=== PATIENT | female | born 1980 | race Hispanic/Latino ===

== ENCOUNTER 2018-04-08 20:20 | Emergency (ER) | payer OTHER ==
[2018-04-08 21:30] LABS: Urine Blood TRACE (NEG); Urine Glucose NEGATIVE (NEG); Urine Protein NEGATIVE (NEG); Urine Specific Gravity 1.025 (1.005-1.030); Urine pH 6.5 (5.0-7.0)
[2018-04-08 21:43] LABS: Barbiturates NEGATIVE (NEGATIVE); Benzodiazepines NEGATIVE (NEGATIVE); Cocaine NEGATIVE (NEGATIVE); METHAMPHETAM NEGATIVE (NEGATIVE); Methadone NEGATIVE (NEGATIVE); Opiates NEGATIVE (NEGATIVE); Phencyclidine NEGATIVE (NEGATIVE); THC Cannibis NEGATIVE (NEGATIVE)
[2018-04-08 21:54] LABS: Absolute Lymphocytes (CBC) 2.4 K/uL (0.7-4.9); Absolute Monocytes 0.8 K/uL (0.1-1.3); Absolute Neutrophil 7.9 K/uL (1.8-8.0); Basophils % 0.4 % (0-1.3); Eosinophils % 4.8 % (0-4.4); Hematocrit 39.8 % (36.0-45.0); Lymphocytes % 20.5 % (15.3-44.8); MPV 8.2 fL (7.6-11.3); Monocytes % 6.7 % (3.3-12.3)
[2018-04-08 22:01] LABS: Protime INR 0.95
[2018-04-08 22:11] LABS: ALT/SGPT 33 U/L (12-78); AST/SGOT 14 U/L (15-37); Albumin 3.5 g/dL (3.4-5.0); Alkaline Phosphatase 90 U/L (45-117); BUN Blood Urea Nitrogen 9 mg/dL (7-18); Bicarbonate 29 mmol/L (21-32); Bilirubin Direct < 0.1 mg/dL (0-0.2); Bilirubin Total 0.1 mg/dL (0.2-1.0); Glucose Level 93 mg/dL (74-106); Potassium 3.3 mmol/L (3.5-5.1); Protein, Total 7.4 g/dL (6.4-8.2); Sodium Level 141 mmol/L (136-145)
[2018-04-08] MEDS ORDERED: POTASSIUM CL SA 10 MEQ TAB PO ONE (22:33)
--- NOTE | 2018-04-08 23:34 | EDPHYS ---
Physician Documentation [facility] Name: Natacha Levine Age: 37 yrs Sex: Female : 1980 Arrival Date: 04/08/2018 Time: 20:24 Bed 8 Private MD: Skyler [facility] ED Physician Alexandre Alvarenga HPI: 04/08 22:08 This 37 yrs old Female presents to ER via Ambulatory with complaints of jr8 Altered Mental Status. 22:08 The patient presents to the emergency department with paranoia, psychosis, has jr8 experienced auditory hallucinations, has experienced visual hallucinations, has delusions. Onset: The symptoms/episode began/occurred gradually, 3 month(s) ago, and became worse and became persistent. Past psychiatric history: Prior diagnosis: schizophrenia, Psychiatric medications include: none. Associated signs and symptoms: The patient has no apparent associated signs or symptoms. Severity of symptoms: At their worst the symptoms were moderate in the emergency department the symptoms are unchanged. The patient has experienced similar episodes in the past, a few times. The patient has not recently seen a physician. Family stated that patient has history of schizophrenia. Has been off of her meds for some time. Has been seeing and hearing people over the past few months that is getting much worse. Patient having flight of ideas and racing thoughts while talking to her. Patient delusional and talking about needing the [employer] and people fondling her and pinching her nipples. 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 - Social history:: Smoking status: Patient/guardian denies using tobacco. - Ebola Screening: : No symptoms or risks identified at this time. ROS: 22:08 Eyes: Negative for injury, pain, redness, and discharge, ENT: Negative for injury, jr8 pain, and discharge, Neck: Negative for injury, pain, and swelling, Cardiovascular: Negative for chest pain, palpitations, and edema, Respiratory: Negative for shortness of breath, cough, wheezing, and pleuritic chest pain, Abdomen/GI: Negative for abdominal pain, nausea, vomiting, diarrhea, and constipation, Back: Negative for injury and pain, MS/Extremity: Negative for injury and deformity, Skin: Negative for injury, rash, and discoloration, Neuro: Negative for headache, weakness, numbness, tingling, and seizure. 22:08 Psych: Positive for auditory hallucinations, visual hallucinations. Exam: 22:08 Head/Face: Normocephalic, atraumatic. Eyes: Pupils equal round and reactive to light, jr8 extra-ocular motions intact. Lids and lashes normal. Conjunctiva and sclera are non-icteric and not injected. Cornea within normal limits. Periorbital areas with no swelling, redness, or edema. ENT: Nares patent. No nasal discharge, no septal abnormalities noted. Tympanic membranes are normal and external auditory canals are clear. Oropharynx with no redness, swelling, or masses, exudates, or evidence of obstruction, uvula midline. Mucous membranes moist. Neck: Trachea midline, no thyromegaly or masses palpated, and no cervical lymphadenopathy. Supple, full range of motion without nuchal rigidity, or vertebral point tenderness. No Meningismus. Cardiovascular: Regular rate and rhythm with a normal S1 and S2. No gallops, murmurs, or rubs. Normal PMI, no JVD. No pulse deficits. Respiratory: Lungs have equal breath sounds bilaterally, clear to auscultation and percussion. No rales, rhonchi or wheezes noted. No increased work of breathing, no retractions or nasal flaring. Abdomen/GI: Soft, non-tender, with normal bowel sounds. No distension or tympany. No guarding or rebound. No evidence of tenderness throughout. Back: No spinal tenderness. No costovertebral tenderness. Full range of motion. Skin: Warm, dry with normal turgor. Normal color with no rashes, no lesions, and no evidence of cellulitis. MS/ Extremity: Pulses equal, no cyanosis. Neurovascular intact. Full, normal range of motion. Neuro: Awake and alert, GCS 15, oriented to person, place, time, and situation. Cranial nerves II-XII grossly intact. Motor strength 5/5 in all extremities. Sensory grossly intact. Cerebellar exam normal. Normal gait. 22:08 Psych: Behavior/mood is cooperative, delirious, Affect is animated, Oriented to person, place, time, Patient has no thoughts/intents to harm self or others. Judgement / Insight is normal. Memory is normal. Delusions/hallucinations are present and described as see hpi . Vital Signs: 20:30 BP 138 / 78; Pulse 90; Resp 18; Temp 98.9(O); Pulse Ox 100% on R/A; Weight 81.65 kg; lp1 Height 5 ft. 4 in. (162.56 cm); Pain 0/10; 23:00 BP 108 / 62; Pulse 84; Resp 16; Pulse Ox 100% on R/A; lp1 20:30 Body Mass Index 30.90 (81.65 kg, 162.56 cm) lp1 MDM: 20:26 Patient medically screened. jr8 23:31 Data reviewed: vital signs, nurses notes, lab test result(s). Data interpreted: Pulse jr8 oximetry: on room air is 100 %. Interpretation: normal. Counseling: I had a detailed discussion with the patient and/or guardian regarding: the historical points, exam findings, and any diagnostic results supporting the discharge/admit diagnosis, lab results, the need to transfer to another facility, [facility] does not immediately have the required specialist. ED course: Dr. Palencia consulted an [facility] and accepted patient for further evaluation . 04/08 21:05 Order name: Basic Metabolic Panel; Complete Time: 22:13 [facility] 04/08 21:05 Order name: CBC with Diff; Complete Time: 22:04 [facility] 04/08 21:05 Order name: ETOH Level; Complete Time: 22:16 [facility] 04/08 21:05 Order name: Hepatic Function; Complete Time: 22:13 [facility] 04/08 21:05 Order name: PT-INR; Complete Time: 22:08 [facility] 04/08 21:05 Order name: Ptt, Activated; Complete Time: 22:08 [facility] 04/08 21:05 Order name: Urine Drug Screen; Complete Time: 21:44 [facility] 04/08 21:05 Order name: IV Saline Lock; Complete Time: 21:53 [facility] 04/08 21:05 Order name: Labs collected and sent; Complete Time: 21:53 [facility] 04/08 21:05 Order name: Urine Dipstick-Ancillary (obtain specimen); Complete Time: 21:18 jr8 04/08 21:05 Order name: Urine Test (obtain specimen); Complete Time: 21:18 jr8 04/08 21:25 Order name: Urine Dipstick--Ancillary (enter results); Complete Time: 21:44 em1 04/08 21:25 Order name: Urine --Ancillary (enter results); Complete Time: 21:44 em1 Administered Medications: 22:25 Drug: Potassium Chloride 20 mEq Route: PO; tl2 23:54 Follow up: Response: No adverse reaction lp1 Disposition: 04/09 15:52 Co-signature as Attending Physician, Alexandre Alvarenga MD I agree with the assessment and [facility] plan of care. Disposition: 04/08/18 23:33 Transfer ordered to Psych Facility. Diagnosis is Schizophrenia. - Reason for transfer: Higher level of care. - Accepting physician is Dr. Palencia. - Condition is Stable. - Problem is new. - Symptoms are unchanged. Signatures: Dispatcher [employer] EDAlexandre Whitman MD MD cha Pena, Laura, RN RN lp1 Alec Esqueda PA PA jr8 Shelia Alba RN RN tl2 Corrections: (The following items were deleted from the chart) 00:14 04/08 23:33 04/08/2018 23:33 Transfer ordered to Psych Facility. Diagnosis is lp1 Schizophrenia. Reason for transfer: Higher level of care. Accepting physician is Dr. Palencia. Condition is Stable. Problem is new. Symptoms are unchanged. jr8
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
[2018-04-09 00:56] VITALS: TEMP 98.9; O2SAT 100
[2018-04-09 00:57] VITALS: BP 108/62
--- OUTSIDE RECORDS SUMMARY | 2018-04-09 17:43 | XMS REPORT ---
:1980 Author Organization eClinicalWorks Care Team Providers Name Role Phone Skyler Jalen Provider Role Unavailable Allergies No Known Allergies Problems Problem Type Condition Code Onset Dates Condition Status Problem Hyperlipidemia, mixed E78.2 Active Problem Hyperglycemia R73.9 Active Problem Depression F32.9 Active Assessment Adult BMI 33.0-33.9 kg/sq m Z68.33 Active Assessment Inflamed skin tag L91.8 Active Problem Vitamin D deficiency E55.9 Active Problem Nocturia R35.1 Active Problem Adult BMI 33.0-33.9 kg/sq m Z68.33 Active Problem Allergic rhinitis J30.9 Active Problem Hypothyroidism E03.9 Active Problem Status post hysterectomy Z90.710 Active Problem Fatigue, unspecified type R53.83 Active Medications Medication Code Code Instructions Start End Status Dosage System Date Date Vitamin D3 [facility] 52159871140 5000 UNIT Active 1 tablet Orally Once a day Levothyroxine ND 26424765847 50 MCG Active TAKE ONE Sodium TABLET BY MOUTH DAILY Flonase Allergy ND 59963154275 50 MCG/ACT Active 1 spray in Relief Nasally Once a each day nostril Results No Known Results Summary Purpose eClinicalWorks Submission
--- OUTSIDE RECORDS SUMMARY | 2018-04-09 17:43 | XMS REPORT ---
:1980 Author Organization eClinicalWorks Care Team Providers Name Role Phone HollandRadhah Provider Role Unavailable Allergies No Known Allergies Problems Problem Type Condition Code Onset Dates Condition Status Problem Depression F32.9 Active Problem Hyperlipidemia, mixed E78.2 Active Problem Nocturia R35.1 Active Problem Status post hysterectomy Z90.710 Active Problem Vitamin D deficiency E55.9 Active Problem Hypothyroidism E03.9 Active Problem Hyperglycemia R73.9 Active Problem Fatigue, unspecified type R53.83 Active Problem Allergic rhinitis J30.9 Active Medications No Known Medications Results No Known Results Summary Purpose eClinicalWorks Submission
--- OUTSIDE RECORDS SUMMARY | 2018-04-09 17:43 | XMS REPORT ---
:1980 Author Organization e[employer]Works Care Team Providers Name Role Phone Skyler Jalen Provider Role Unavailable Allergies No Known Allergies Problems Problem Type Condition Code Onset Dates Condition Status Problem Hyperlipidemia, mixed E78.2 Active Problem Hyperglycemia R73.9 Active Problem Depression F32.9 Active Problem Vitamin D deficiency E55.9 Active Problem Nocturia R35.1 Active Problem Adult BMI 33.0-33.9 kg/sq m Z68.33 Active Problem Allergic rhinitis J30.9 Active Problem Hypothyroidism E03.9 Active Problem Status post hysterectomy Z90.710 Active Problem Fatigue, unspecified type R53.83 Active Medications Medication Code Code Instructions Start End Status Dosage System Date Date Levothyroxine [facility] 43185813239 50 MCG oral Active 1 tablet Sodium once daily on an empty stomach Results No Known Results Summary Purpose eClinicalWorks Submission
--- OUTSIDE RECORDS SUMMARY | 2018-04-09 17:43 | XMS REPORT ---
:1980 Author Organization eClinicalWorks Care Team Providers Name Role Phone Radha Hollandh Provider Role Unavailable Allergies No Known Allergies [...]
--- OUTSIDE RECORDS SUMMARY | 2018-04-09 17:43 | XMS REPORT ---
:1980 Author Organization eClinicalWorks Care Team Providers Name Role Phone Jalen Holland Provider Role Unavailable Allergies, Adverse Reactions, Alerts Substance Reaction Event Type Amoxicillin Info Not Available Drug Allergy Problems Problem Type Condition Code Onset Dates Condition Status Problem Hyperlipidemia, mixed E78.2 Active Problem Hyperglycemia R73.9 Active Problem Depression F32.9 Active Problem Vitamin D deficiency E55.9 Active Problem Nocturia R35.1 Active Problem Adult BMI 33.0-33.9 kg/sq m Z68.33 Active Problem Allergic rhinitis J30.9 Active Problem Hypothyroidism E03.9 Active Problem Status post hysterectomy Z90.710 Active Problem Fatigue, unspecified type R53.83 Active Assessment Fatigue, unspecified type R53.83 Active Assessment Vitamin D deficiency E55.9 Active Assessment Hyperlipidemia, mixed E78.2 Active Assessment Allergic rhinitis J30.9 Active Assessment Hypothyroidism E03.9 Active Assessment Depression F32.9 Active Medications Medication Code Code Instructions Start End Status Dosage System Date Date Levothyroxine [facility] 20598559399 50 MCG Orally Active 1 tablet Sodium Once a day on an empty stomach in the morning Flonase Allergy ND 20338786348 50 MCG/ACT Active 1 spray in Relief Nasally Once a each day nostril Levothyroxine ND 72693593825 50 MCG oral Active 1 tablet Sodium once daily on an empty stomach Vitamin D3 ND 83086732138 5000 UNIT Active 1 tablet Orally Once a day Results No Known Results Summary Purpose eClinicalWorks Submission
--- OUTSIDE RECORDS SUMMARY | 2018-04-09 17:43 | XMS REPORT ---
:1980 Author Organization eClinicalWorks Care Team Providers Name Role Phone Aidee Granda Provider Role Unavailable Allergies No Known Allergies [...] Problem Fatigue, unspecified type R53.83 Active Medications No Known Medications Results No Known Results Summary Purpose eClinicalWorks Submission
--- OUTSIDE RECORDS SUMMARY | 2018-04-09 17:43 | XMS REPORT ---
:1980 Author Organization eClinicalWorks Care Team Providers Name Role Phone Jalen Holland Provider Role Unavailable Allergies No Known Allergies Problems Problem Type Condition Code Onset Dates Condition Status Assessment Hypothyroidism E03.9 Active Problem Depression F32.9 Active Problem Hyperlipidemia, mixed E78.2 Active Problem Nocturia R35.1 Active Problem Status post hysterectomy Z90.710 Active Problem Vitamin D deficiency E55.9 Active Problem Hypothyroidism E03.9 Active Problem Hyperglycemia R73.9 Active Problem Fatigue, unspecified type R53.83 Active Problem Allergic rhinitis J30.9 Active Assessment Allergic rhinitis J30.9 Active Assessment Depression F32.9 Active Assessment Vitamin D deficiency E55.9 Active Assessment Fatigue, unspecified type R53.83 Active Assessment Hyperlipidemia, mixed E78.2 Active Medications Medication Code Code Instructions Start End Status Dosage System Date Date Vitamin D3 [facility] 36493616783 5000 UNIT September 17September 12, Active 1 tablet Orally Once a 2017 2018 day Flonase Allergy ND 58265574765 50 MCG/ACT Active 1 spray in Relief Nasally Once a each day nostril Levothyroxine ND 43791627338 50 MCG Orally Active 1 tablet Sodium Once a day on an empty stomach in the morning Results No Known Results Summary Purpose eClinicalWorks Submission
--- OUTSIDE RECORDS SUMMARY | 2018-04-09 17:43 | XMS REPORT ---
[...] Active Problem Allergic rhinitis J30.9 Active Assessment Fatigue, unspecified type R53.83 Active Assessment Vitamin D deficiency E55.9 Active Assessment Hyperlipidemia, mixed E78.2 Active Assessment Allergic rhinitis J30.9 Active Assessment Hypothyroidism E03.9 Active Assessment Depression F32.9 Active Assessment Mass of right axilla R22.31 Active Medications Medication Code Code Instructions Start End Status Dosage System Date Date Levothyroxine ND 13338775049 50 MCG Orally Active 1 tablet Sodium Once a day on an empty stomach in the morning Flonase Allergy ND 55460663671 50 MCG/ACT Active 1 spray in Relief Nasally Once a each day nostril Levothyroxine ND 37047147446 50 MCG Active TAKE ONE Sodium TABLET BY MOUTH DAILY Vitamin D3 ND 16457574845 5000 UNIT Active 1 tablet Orally Once a day Results No Known Results Summary Purpose eClinicalWorks Submission
== END 2018-04-09 00:14 ==
LOC: ER 20:20
DX: F20.9 Schizophrenia, unspecified (principal); E03.9 Hypothyroidism, unspecified; Z88.1 Allergy status to other antibiotic agents
CPT/HCPCS: 36415; 80048; 80076; 80307; 80320; 81003; 81025; 85025; 85610; 85730; 99285

== ENCOUNTER 2020-05-20 11:44 | Emergency (ER) | payer OTHER, SELFPAY ==
--- OUTSIDE RECORDS SUMMARY | 2020-05-20 11:46 | XMS REPORT | Continuity of Care Document ---
:1980 Author Organization [facility] t Address [address] [place] [address] Care Team Providers Name Role Phone Unavailable Unavailable Unavailable Problems This patient has no known problems. Allergies, Adverse Reactions, Alerts Allergy Allergy Status Severity Reaction(s) Onset Inactive Treating Comm ents Source Name Type Date Date Clinician Amoxicil Adverse Active Info Not [facility] Available [facility] Medications Ordered Filled Start Stop Current Ordering Indication Dosage Frequency Signature Comments Components Source Medication Medication Date Date Medication? Clinician (SIG) Name Name Levothyroxi Levothyroxi Yes Jalen [address] [facility] ne Sodium ne Sodium Holland on an Mona es - empty Memoria stomach in l the [facility] morning ent Clinics Vitamin D3 Vitamin D3 Yes Jalen [address] [facility] [place] [facility] Fluticasone Fluticasone Yes Jalen SPRAY TWO [facility] Propionate Propionate [place] SPRAYS IN [facility] NOSTRIL l ONCE DAILY [facility]ics Flonase Flonase Yes Jalen [address] [facility] Allergy Allergy [place] each [facility] Relief Relief nostril [facility] Clin[facility] Procedures This patient has no known procedures. Encounters Start End Encounter Admission Attending Care Care Encounter Source Date/Time Date/Time Type Type Clinicians Facility Department ID 2020-03-07 2020-03-07 Outpatient [facility] [id number] [facility] 2020-03-06 2020-03-06 Outpatient [facility] [id number] [facility] Outpat[facility] ent Clinics 2019-12-05 2019-12-05 [facility] [id number] [facility] 14:53:00 14:53:00 t [employer] [facility] Medicine Outpati ent Clinics 2019-12-02 2019-12-02 [facility] [id number] [facility] 10:45:00 10:45:00 t [employer] [facility] Out[facility] Clinics 2019-09-05 2019-09-05 [facility] [id number] [facility] [address] 16:45:00 16:45:00 t [employer] [facility] 2019-09-02 2019-09-02 [facility] [id number] [address] 10:21:00 10:21:00 t [employer] [facility] Clinics 2019-07-06 2019-07-06 [facility] [id number] [facility] 16:56:00 16:56:00 t [employer] [facility] 2019-07-04 2019-07-04 [facility] [id number] 13:45:00 13:45:00 t [employer] [facility] Clinics 2019-07-04 2019-07-04 [facility] [id number] [address] 10:39:00 10:39:00 t [employer] [facility] Out[facility] Clinics 2019-05-31 2019-05-31 [facility] [id number] 16:28:00 16:28:00 t [employer] [facility] Out[facility] ent Clinics 2019-05-05 2019-05-05 [facility] [id number] [facility] 10:14:00 10:14:00 t [employer] [facility] Out[facility] ent Clinics 2019-03-31 2019-03-31 [facility] [id number] [address] 10:54:00 10:54:00 [place] [employer] s - [facility] 2018-12-06 2018-12-06 [facility] [id number] [facility] [address] 09:45:00 09:45:00 [place] [employer] s - [facility] 2018-12-03 2018-12-03 [facility] [id number] [address] 16:33:00 16:33:00 [place] [employer] s - [facility] 2018-11-03 2018-11-03 [facility] [id number] [address] 08:36:00 08:36:00 [place] [employer] s - [facility] 2018-08-16 2018-08-16 [facility] [id number] [address] 15:30:00 15:30:00 [facility] 2018-05-26 2018-05-26 [facility] [id number] [address] 13[facility]00:00 13:00:00 [place] [employer] [facility] Clin[facility] 2018-01-26 2018-01-26 [facility] [id number] [address] 13:15:00 13:15:00 [place] [employer] s - [facility] 2018-01-13 2018-01-13 [facility] [id number] [address] 13:15:00 13:15:00 t [facility] Outpat[facility] ent Clinics 2017-12-15 2017-12-15 [facility] [id number] [address] 09:34:00 09:34:00 [place] [employer] s - [facility] 2017-11-23 2017-11-23 [facility] [id number] [facility] 13:30:00 13:30:00 t [employer] [facility] Clin[facility] 2017-10-29 2017-10-29 [facility] [id number] [address] 13:45:00 13:45:00 t [employer] [facility] 2017-09-29 2017-09-29 [facility] [id number] 11:15:00 11:15:00 t [employer] [facility] 2017-09-22 2017-09-22 [facility] [id number] 11:11:00 11:11:00 t [employer] [facility] Outpati ent Clinics 2017-09-17 2017-09-17 [facility] [id number] 13:00:00 13:00:00 t [employer] [facility] Outpati ent Clinics Results This patient has no known results.
--- OUTSIDE RECORDS SUMMARY | 2020-05-20 11:46 | XMS REPORT ---
:1980 Author Organization [facility] Address [address] [place] [address] Care Team Providers Name Role Phone Holland Unavailable [phone] PROBLEMS Type Condition ICD9-CM [id number] Onset Condition SNOMED Code Notes Code Code Dates Status Problem Depression F32.9 Active 108858488 Problem Hyperlipidemia, E78.2 Active 067111007 mixed Problem Hypothyroidism E03.9 Active 38994428 Problem Fatigue, R53.83 Active 54744471 unspecified type Problem Status post Z90.710 Active 678450911 hysterectomy Problem Pain, joint, M25.541 Active 5693962284331172 hand, right Problem Allergic J30.9 Active 47406664 rhinitis Problem Paresthesia of R20.2 Active 61161184761485495 right arm Problem Hyperglycemia R73.9 Active 73587190 Problem Nocturia R35.1 Active 982611632 Problem Vitamin D E55.9 Active 15729065 deficiency Problem Adult BMI Z68.33 Active 311916151 33.0-33.9 kg/sq m Problem Carpal tunnel G56.01 Active 58458110 syndrome of right wrist ALLERGIES Allergen (clinical drug Drug/Non Drug Allergy Reaction Allergy Type Onset Date Status ingredient) documented on EMR amoxicillin Amoxicillin([facility] Unknown Drug Allergy Active Code:[address]-96) ENCOUNTERS from 1980 to 2020-03-08 Encounter Location Date Provider Diagnosis [facility] [place] [address] [place], Jalen Holland Hypothyro idism E03.9 ; Drive [address], Hyperlipid [place], [place] [address] E78.2 ; Vitami n D deficiency E55. 9 ; Depression F32. 9 ; Allergic rhinit is J30.9 ; Fatigue, unsp ecified type R53.83 and Nocturia R35.1 IMMUNIZATIONS No Information SOCIAL HISTORY Tobacco Use: Social History Observation Description Date Details (start date - stop date) Never Smoker Sex Assigned At : Social History Observation Description Sex Assigned At Unknown Depression Screening Question Answer Notes Over the past two weeks, has the PT felt down, depressed, or hopeless? No Over the past two weeks, has the PT felt little interest or pleasure in No doing things? Alcohol Screen Question Answer Notes Did you have a drink containing alcohol in the past year? No Points 0 Interpretation Negative Tobacco Use/Smoking Question Answer Notes Are you a never smoker REASON FOR REFERRAL No Information VITAL SIGNS Height 62 in Feb, Weight 185 lbs Feb, Temperature 98 degrees Fahrenheit Feb, BMI 33.83 kg/m2 Feb, MEDICATIONS Medication SIG (Take, Route, Notes Start Date End Date Status Frequency, Duration) Vitamin D3 5000 UNIT 1 tablet Orally Once a Active day for 30 day(s) Fluticasone Propionate 50 SPRAY TWO SPRAYS IN EACH Active MCG/ACT NOSTRIL ONCE DAILY for 30 Flonase Allergy Relief 50 1 spray in each nostril Active MCG/ACT Nasally Once a day Levothyroxine Sodium 50 MCG 1 tablet on an empty Active stomach in the morning Orally Once a day for 90 days Flonase Allergy Relief 50 1 spray in each nostril Active MCG/ACT Nasally Once a day for 30 PROCEDURES No Information RESULTS No Results REASON FOR VISIT 3 mth f/u MEDICAL (GENERAL) HISTORY Type Description Date Medical History Hypothyroidism Medical History Hyperlipidemia, mixed Medical History Depression Medical History Hyperglycemia Medical History Allergic rhinitis Medical History Vitamin D deficiency Medical History Fatigue, unspecified type Medical History Adult BMI 33.0-33.9 kg/sq m Surgical History Hysterectomy due to Fibroids. Dr.Kadiyal hutchins 2011 Surgical History GALLBLADDER 2013 Goals Section No Information Health Concerns No Information MEDICAL EQUIPMENT No Information MENTAL STATUS No Information FUNCTIONAL STATUS No Information ASSESSMENTS Encounter Date Diagnosis Assessment Notes Treatment Notes Treatm ent Clinical Notes Feb, Hypothyroidism Education given. (ICD-10 - E03.9) Refill given. Continue Current regimen. Side effect discussed. , Hypothyroidism Education: This a condition in which the thyroid gland does not produce enough thyroid hormone for the body. The hormones are important in regulating the body''s use of storing and controlling energy. Symptoms are widely varied and often mimick the body''s normal changes of life. Symptoms may include: fatigue, shortness of breath with exertion, dry skin, hair loss, constipation, depressed feeling, weight gain and temperature intolerance. A blood test is used to determine the thyroid levels. Treatment involves the use of medication in order to balance the TSH and T4 hormone levels. Treatment is indefinite and often lifelong. Your hormone levels will need to be checked periodically to insure that the levels are balanced. Compliance with medication is vital. Overtreated hormone levels can lead to complications. Contact your doctor if you have any abnormal symptoms. Feb, Hyperlipidemia, Diet-Controlled. mixed (ICD-10 - Education given. E78.2) Feb, Vitamin D deficiency Make Dietary changes (ICD-10 - E55.9) and inceased sunlight. Intermittent compliant. Feb, Depression (ICD-10 - Seen by counselor. F32.9) NO medications.-- Depression Education: Depression is a brain disease that makes you sad, but it is different than normal sadness. Depressed people feel down most of the time for at least 2 weeks. They also have at least one of these 2 symptoms: 1. They no longer enjoy or care about doing the things they used to like to do. 2. They feel sad, down, hopeless, or cranky most of the day, almost every day. It can also make you: lose or gain weight; sleep too much or too little; fell tired or like you have no energy; feel guilty or like you are worth nothing; forget things or feel confused; and think about or suicide. Medication and/or seeing a counselor (such as a psychiatrist, psychologist, nurse or high school social studies tutor) may be necessary to treat depression. Both treatments take time to work. If you ever feel like you might hurt yourself or some else, then call your doctor or call 911 or go to the ER. Feb, Allergic rhinitis Stable. Education (ICD-10 - J30.9) given. Feb, Fatigue, unspecified Education given. type (ICD-10 - R53.83) Feb, Nocturia (ICD-10 - R35.1) Feb, Other -- Medication reviewed and updated. -- Dietary and Lifestyle modifications addressed regarding diet, exercise and weight managemen t. -- Treatment options, risks and benefits, side effects reviewed in detail. -- Advised on signs/symptoms to monitor and when to call clinic and/or visit the nearest ER. Patient verbalized understanding and agreeable with plan. PLAN OF TREATMENT Medication Medication Name Sig Start Date Stop Date Vitamin D3 5000 UNIT 1 tablet Orally Once a day for 30 day(s) Levothyroxine Sodium 50 MCG 1 tablet on an empty stomach in the morning Orally Once a day for 90 days Flonase Allergy Relief 50 MCG/ACT 1 spray in each nostril Nasally Once a day Treatment Notes Assessment Notes Clinical Notes Hypothyroidism Education given. Refill given. Continue Current regimen. Side effect discussed. , Hypothyroidism Education: This a conditi on in which the thyroid gland does not prod uce enough thyroid hormone for the body. The hormones are important in regulating the body''s use of storing and controlling energy. Symptoms are widely varied and o ften mimick the body''s normal changes of lif e. Symptoms may include: fatigue, shortness of breath with exertion, dry skin, hair los s, constipation, depressed feeling, weight gain and temperature intolerance. A blood raz t is used to determine the thyroid levels. Treatment involves the use of medication in order to balance the TSH and T4 hormone levels. Treatment is indefinite and ofte n lifelong. Your hormone levels will need to be checked periodically to insure that t he levels are balanced. Compliance with medication is vital. Overtreated hormone levels can lead to complications. Contac t your doctor if you have any abnormal symptoms. Hyperlipidemia, mixed Diet-Controlled. Education given. Vitamin D deficiency Make Dietary changes and inceased sunli ght. Intermittent compliant. Depression Seen by counselor. NO medications.-- Depression Education: Depression is a br ain disease that makes you sad, but it is different than normal sadness. Depressed people feel down most of the time for at least 2 weeks. They also have at least o ne of these 2 symptoms: 1. They no longer e njoy or care about doing the things they used to like to do. 2. They feel sad, down, hopeless, or cranky most of the day, brandon ost every day. It can also make you: lose or gain weight; sleep too much or too littl e; fell tired or like you have no energy; f eel guilty or like you are worth nothing; fo rget things or feel confused; and think about or suicide. Medication and/or seei ng a counselor (such as a psychiatrist, psychologist, nurse or high school social studies tutor) ma y be necessary to treat depression. Both treatments take time to work. If you sergio r feel like you might hurt yourself or eliza e else, then call your doctor or call 911 or go to the ER. Allergic rhinitis Stable. Education given. Fatigue, unspecified type Education given. Treatment Notes Test Name Order Date Thyroid Panel With TSH 2020-03-08 Vitamin D, 25-Hydroxy 2020-03-08 Next Appt Details 3 Months + Labs 1 week Reason:
--- OUTSIDE RECORDS SUMMARY | 2020-05-20 11:46 | XMS REPORT ---
:1980 Author Organization [facility] Address [address] [place] [address] Care Team Providers Name Role Phone Holland Unavailable [phone] PROBLEMS Type Condition ICD9-CM [id number] Onset Condition SNOMED Code Notes Code Code Dates Status Problem Depression F32.9 Active 760684566 Problem Hyperlipidemia, E78.2 Active 790084439 mixed Problem Hypothyroidism E03.9 Active 70042827 Problem Fatigue, R53.83 Active 94379649 unspecified type Problem Status post Z90.710 Active 378988610 hysterectomy Problem Pain, joint, M25.541 Active 0069140943435128 hand, right Problem Allergic J30.9 Active 12418541 rhinitis Problem Paresthesia of R20.2 Active 36109150316293802 right arm Problem Hyperglycemia R73.9 Active 45243562 Problem Nocturia R35.1 Active 425429495 Problem Vitamin D E55.9 Active 65251781 deficiency Problem Adult BMI Z68.33 Active 570105035 33.0-33.9 kg/sq m Problem Carpal tunnel G56.01 Active 93674606 syndrome of right wrist ALLERGIES Allergen (clinical drug Drug/Non Drug Allergy Reaction Allergy Type Onset Date Status ingredient) documented on EMR amoxicillin Amoxicillin([facility] Unknown Drug Allergy Active Code:[address]-69) ENCOUNTERS from 1980 to 2020-03-06 Encounter Location Date Provider Diagnosis [facility] [address], [place] [address] IMMUNIZATIONS No Information SOCIAL HISTORY Tobacco Use: [...] REASON FOR REFERRAL No Information VITAL SIGNS No information MEDICATIONS Medication SIG (Take, Route, Notes Start Date End Date Status Frequency, Duration) Levothyroxine Sodium 50 MCG 1 tablet on an empty Active stomach in the morning Orally Once a day for 90 days Vitamin D3 5000 UNIT 1 tablet Orally Once a Active day for 30 day(s) Fluticasone Propionate 50 SPRAY TWO SPRAYS IN EACH Active MCG/ACT NOSTRIL ONCE DAILY for 30 Flonase Allergy Relief 50 1 spray in each nostril Active MCG/ACT Nasally Once a day for 30 PROCEDURES No Information RESULTS No Results REASON FOR VISIT refill levothyroxine MEDICAL (GENERAL) HISTORY Type Description Date Medical History Hypothyroidism Medical History Hyperlipidemia, mixed Medical History Depression Medical History Hyperglycemia Medical History Allergic rhinitis Medical History Vitamin D deficiency Medical History Fatigue, unspecified type Medical History Adult BMI 33.0-33.9 kg/sq m Surgical History Hysterectomy due to Fibroids. Dr.Kadiyal hutchins 2012 Surgical History GALLBLADDER 2013 Goals Section No Information Health Concerns No Information MEDICAL EQUIPMENT No Information MENTAL STATUS No Information FUNCTIONAL STATUS No Information ASSESSMENTS No Information PLAN OF TREATMENT Medication Medication Name Sig Start Date Stop Date Vitamin D3 5000 UNIT 1 tablet Orally Once a day for 30 day(s) Levothyroxine Sodium 50 MCG 1 tablet on an empty stomach in the morning Orally Once a day for 90 days Flonase Allergy Relief 50 MCG/ACT 1 spray in each nostril Nasally Once a day for 30 Next Appt Details Provider Name:Jalen Holland, 2020-03-07 0 4:00:00 PM, [address], [place], [address],
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
--- NOTE | 2020-05-20 13:42 | EDPHYS ---
Physician Documentation [facility] Name: Natacha Levine Age: 39 yrs Sex: Female : 1980 Arrival Date: 05/20/2020 Time: 11:47 Bed 25 Private MD: ED Physician Dangelo García HPI: 05/20 13:31 This 39 yrs old Female presents to ER via Ambulatory with complaints of Mental [facility] Evaluation. 13:31 This is a 39 year old female with a history of HLP, hypothyroidism, schizophrenia that jmm presents to the ED with no complaints for mental evaluation. Patient denies being suicidal or homicidal. Denies hallucinations. . Historical: - Allergies: 12:38 Amoxicillin; ss - PMHx: 12:38 Hyperlipidemia; Hypothyroidism; Schizophrenia; ss - PSHx: 12:38 Hysterectomy; Cholecystectomy; ss - Immunization history:: Flu vaccine is not up to date. - Social history:: Smoking status: Patient denies any tobacco usage or history of. ROS: 13:31 Constitutional: Negative for fever, chills, and weight loss, Cardiovascular: Negative jmm for chest pain, palpitations, and edema, Respiratory: Negative for shortness of breath, cough, wheezing, and pleuritic chest pain, Abdomen/GI: Negative for abdominal pain, nausea, vomiting, diarrhea, and constipation, Neuro: Negative for headache, weakness, numbness, tingling, and seizure. 13:31 All other systems are negative. Exam: 13:31 Constitutional: This is a well developed, well nourished patient who is awake, alert, jmm and in no acute distress. Head/Face: atraumatic. Eyes: EOMI, no conjunctival erythema appreciated ENT: Moist Mucus Membranes Neck: Trachea midline, Supple Chest/axilla: Normal chest wall appearance and motion. Cardiovascular: Regular rate and rhythm. No edema appreciated Respiratory: Normal respirations, no respiratory distress appreciated Abdomen/GI: Non distended, soft Back: Normal ROM Skin: General appearance color normal MS/ Extremity: Moves all extremities, no obvious deformities appreciated, no edema noted to the lower extremities 13:31 Neuro: Orientation: is normal, Mentation: is normal, Memory: is normal. 13:31 Psych: Behavior/mood is pleasant, tangential speech regarding a neighbor. Vital Signs: 12:39 BP 134 / 89; Pulse 89; Resp 16; Temp 98.1; Pulse Ox 100% on R/A; Weight 58.97 kg; ss Height 5 ft. 7 in. (170.18 cm); Pain 0/10; 12:39 Body Mass Index 20.36 (58.97 kg, 170.18 cm) ss MDM: 13:29 Patient medically screened. pinky 13:31 Data reviewed: vital signs, nurses notes. Counseling: I had a detailed discussion with pinky the patient and/or guardian regarding: the historical points, exam findings, and any diagnostic results supporting the discharge/admit diagnosis, the need for outpatient follow up, to return to the emergency department if symptoms worsen or persist or if there are any questions or concerns that arise at home. ED course: Patient is not suicidal or homicidal. Patient does not want mental health evaluation. Patient advised to return to the ED if she does develop those thoughts. . 05/20 13:29 Order name: Milton. Order: alburnett; Complete Time: 13:32 pinky Administered Medications: No medications were administered Disposition: 05/20/20 13:41 Discharged to Home. Impression: Person with feared health complaint in whom no diagnosis is made. - Condition is Stable. - Medication Reconciliation Form, Thank You Letter, Antibiotic Education, Prescription Opioid Use form. - Follow up: Private Physician; When: 2 - 3 days; Reason: Recheck today's complaints, Continuance of care, Re-evaluation by your physician. Addendum: 05/21/2020 18:28 Co-signature as Attending Physician, Dangelo García MD. m a2 Signatures: Abhay Frost PA PA jmm Smirch, Shelby, RN RN Dangelo García MD MD ma2 Corrections: (The following items were deleted from the chart) 05/20 13:53 13:41 05/20/2020 13:41 Discharged to Home. Impression: Person with feared health ss complaint in whom no diagnosis is made. Condition is Stable. Forms are Medication Reconciliation Form, Thank You Letter, Antibiotic Education, Prescription Opioid Use. Follow up: Private Physician; When: 2 - 3 days; Reason: Recheck today's complaints, Continuance of care, Re-evaluation by your physician. pinky
[2020-05-20 14:02] VITALS: BP 134/89; TEMP 98.1; O2SAT 100
== END 2020-05-20 13:53 | disposition home or self-care (01) ==
LOC: ER 11:44
DX: Z71.1 Person with feared health complaint in whom no diagnosis is made (principal); Z88.1 Allergy status to other antibiotic agents; E03.9 Hypothyroidism, unspecified; F20.9 Schizophrenia, unspecified
CPT/HCPCS: 99281

== ENCOUNTER 2021-06-06 17:46 | Emergency (ER) | payer SELFPAY ==
--- OUTSIDE RECORDS SUMMARY | 2021-06-06 17:51 | XMS REPORT | Continuity of Care Document ---
:1980 Author Organization [facility] t Address [address] [place] [address] Care Team Providers Name Role Phone Skyler, Jalen Attending Clinician Unavailable Problems This patient has no known problems. Allergies, Adverse Reactions, Alerts Allergy Allergy Status Severity Reaction(s) Onset Inactive Treating Comm ents Source Name Type Date Date Clinician Amoxicil Adverse Active Info Not [facility] Medications Ordered Filled Start Stop Current Ordering Indication Dosage Frequency Signature Comments Components Source Medication Medication Date Date Medication? Clinician (SIG) Name Name Levothyroxi Levothyroxi Yes Jalen [address] [facility] ne Sodium ne Sodium Holland on an Mona es - empty [facility] Vitamin D3 Vitamin D3 Yes Jalen [address] [facility] Fluticasone Fluticasone Yes Jalen SPRAY TWO [facility] Propionate Propionate [facility] SPRAYS IN [facility] Flonase Flonase Yes Jalen [address] [facility] Allergy Allergy [facility] each [facility] Relief Relief nostril [facility] ent Clinics Procedures This patient has no known procedures. Encounters Start End Encounter Admission Attending Care Care Encounter Source Date/Time Date/Time Type Type Clinicians Facility Department ID 2021-05-15 [facility] [id number] [facility] 12:06:37 Jalen [id number] [facility] 2021-05-15 Outpatient Holland, [facility] [id number] [facility] [address] 12:06:03 Jalen [id number] [facility] 2021-05-15 [facility] [id number] [facility] 11:21:23 Jalen [id number] [facility] 2021-05-15 [facility] [id number] [facility] [address] 11:06:51 Jalen [id number] [facility] 2021-05-15 [facility] [id number] [facility] [facility] 11:06:24 Jalen [id number] [facility] 2021-05-15 [facility] [id number] 11:06:12 Jalen [id number] [facility] 2021-05-15 [facility] [id number] [address] 11:04:19 Jalen [id number] [facility] 2021-02-12 2021-02-12 Outpatient [facility] [id number] [facility] 2020-11-06 2020-11-06 Out[facility] [id number] [facility] 2020-10-03 2020-10-03 Out[facility] [id number] [facility] 2020-06-07 2020-06-07 Outpatient [facility] [id number] [facility] 2020-03-07 2020-03-07 Out[facility] [id number] [facility] 2020-03-06 2020-03-06 Out[facility] [id number] [facility]00 [facility] Outpat[facility] ent Clinics 2019-12-05 2019-12-05 [facility] [id number] [facility] 14:53[facility]00 14:53:00 [place] [employer] [facility] l Medicine Outpati ent Clinics 2019-12-02 2019-12-02 [facility] [id number] [facility] 10:45:00 10:45:00 [place] [employer] [facility] Clin[facility] 2019-09-05 2019-09-05 [facility] [id number] 16:45:00 16:45:00 [place] [facility] - [facility] Clinics 2019-09-02 2019-09-02 [facility] [id number] 10:21:00 10:21:00 [place] [facility] [place] [facility] Out[facility] Clinics 2019-07-06 2019-07-06 [facility] [id number] [facility] 16:56:00 16:56:00 [place] [facility] [place] [facility] Out[facility] Clinics 2019-07-04 2019-07-04 [facility] [id number] 13:45:00 13:45:00 [place] [facility] [place] [facility] Clinics 2019-07-04 2019-07-04 [facility] [id number] [facility] 10:39:00 10:39:00 [place] [facility] [facility] Out[facility] Clinics 2019-05-31 2019-05-31 [facility] [id number] 16:28:00 16:28:00 [place] [facility] [facility] Clinics 2019-05-05 2019-05-05 [facility] [id number] 10:14:00 10:14:00 [place] [employer] [facility] Clinics 2019-03-31 2019-03-31 [facility] [id number] [facility] 10:54:00 10:54:[address] [place] [address] [place] [address] [facility] - [facility] Clinics 2018-12-06 2018-12-06 [facility] [id number] [address] 09:45:00 09:45:[address] [place] [address] [facility] - [facility] Clinics 2018-12-03 2018-12-03 [facility] [id number] 16:33:00 16:33:00 [place] [employer] [facility] Clinics 2018-11-03 2018-11-03 [facility] [id number] 08:36:00 08:36:00 [place] [employer] [facility] Clin[facility] 2018-08-16 2018-08-16 [facility] [id number] 15:30:00 15:30:00 [facility] Clinics 2018-05-26 2018-05-26 [facility] [id number] 13:00:00 13:00:00 [place] [facility] [place] [facility] Outpati ent Clinics 2018-01-26 2018-01-26 [facility] [id number] 13:15:00 13:15:00 [place] [facility] [facility] - [facility] Outpati ent Clinics 2018-01-13 2018-01-13 [facility] [id number] [facility] 13:15:00 13:15:00 [facility] 2017-12-15 2017-12-15 [facility] [id number] 09:34:00 09:34:00 [place] [employer] [facility] Clin[facility] 2017-11-23 2017-11-23 [facility] [id number] 13:30:00 13:30:00 [place] [employer] - [facility] 2017-10-29 2017-10-29 [facility] [id number] 13:45:00 13:45:[address] [place] [address] [employer] [facility] - [facility] Clin[facility] 2017-09-29 2017-09-29 [facility] [id number] 11:15:00 11:15:[address] [place] [address] [address] [employer] [facility] - Drive [facility] Clin[facility] 2017-09-22 2017-09-22 [facility] [id number] 11:11:00 11:11:00 [place] [facility] [facility] Clin[facility] 2017-09-17 2017-09-17 [facility] [id number] 13:00:00 13:00:00 [place] [facility] [facility] Clin[facility] Results This patient has no known results.
[2021-06-06] MEDS ORDERED: NA CHLORIDE 0.9% 1,000 ML ONE (21:19)
[2021-06-06 21:20] LABS: Absolute Lymphocytes (CBC) 2.5 K/uL (0.7-4.9); Hematocrit 40.9 % (36.0-45.0); Lymphocytes % 15.7 % (15.3-44.8); MPV 7.5 fL (7.6-11.3); RBC Red Blood Cell Count 4.85 M/uL (3.86-4.86)
[2021-06-06 21:29] LABS: Protime INR 0.9
[2021-06-06 21:42] LABS: Urine Blood Trace-lysed (Negative); Urine Glucose Negative (Negative); Urine Protein Negative (Negative); Urine Specific Gravity >=1.030 (1.005-1.030)
[2021-06-06 21:54] LABS: ALT/SGPT 38 U/L (12-78); AST/SGOT 17 U/L (15-37); Albumin 3.9 g/dL (3.4-5.0); Alkaline Phosphatase 120 U/L (45-117); BUN Blood Urea Nitrogen 14 mg/dL (7-18); Bicarbonate 27 mmol/L (21-32); Bilirubin Direct < 0.1 mg/dL (0-0.2); Bilirubin Total 0.1 mg/dL (0.2-1.0); Glucose Level 114 mg/dL (74-106); Potassium 3.8 mmol/L (3.5-5.1); Protein, Total 8.2 g/dL (6.4-8.2); Sodium Level 140 mmol/L (136-145)
[2021-06-06 22:00] LABS: Urine Specific Gravity/Preg >1.030 (1.005-1.030)
[2021-06-06 22:06] LABS: Barbiturates NEGATIVE (NEGATIVE); Benzodiazepines NEGATIVE (NEGATIVE); Cocaine NEGATIVE (NEGATIVE); METHAMPHETAM NEGATIVE (NEGATIVE); Methadone NEGATIVE (NEGATIVE); Opiates NEGATIVE (NEGATIVE); Phencyclidine NEGATIVE (NEGATIVE); THC Cannibis NEGATIVE (NEGATIVE)
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
--- NOTE | 2021-06-06 23:46 | EDPHYS ---
Physician Documentation [facility] Name: Natacha Levine Age: 40 yrs Sex: Female : 1980 Arrival Date: 06/06/2021 Time: 17:50 Bed 16 Private MD: [facility] ED Physician Alexandre Alvarenga HPI: 06/06 23:48 This 40 yrs old Female presents to ER via Law Enforcement with complaints of jaymie Mental evaluation. 23:48 The patient presents to the emergency department with anxiety, psychosis, has jaymie delusions. Onset: The symptoms/episode began/occurred 1 week(s) ago. Past psychiatric history: Prior diagnosis: schizophrenia. Associated signs and symptoms: The patient has no apparent associated signs or symptoms. Severity of symptoms: At their worst the symptoms were moderate in the emergency department the symptoms are unchanged. The patient has experienced similar episodes in the past, several times. 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 - Social history:: Smoking status: Patient denies any tobacco usage or history of. - Family history:: not pertinent. ROS: 23:48 Constitutional: Negative for fever, chills, and weight loss, Eyes: Negative for injury, jaymie pain, redness, and discharge, ENT: Negative for injury, pain, and discharge, Neck: Negative for injury, pain, and swelling, Cardiovascular: Negative for chest pain, palpitations, and edema, Respiratory: Negative for shortness of breath, cough, wheezing, and pleuritic chest pain, Abdomen/GI: Negative for abdominal pain, nausea, vomiting, diarrhea, and constipation, Back: Negative for injury and pain, : Negative for injury, bleeding, discharge, and swelling, MS/Extremity: Negative for injury and deformity, Skin: Negative for injury, rash, and discoloration, Neuro: Negative for headache, weakness, numbness, tingling, and seizure, Allergy/Immunology: Negative for hives, rash, and allergies, Endocrine: Negative for neck swelling, polydipsia, polyuria, polyphagia, and marked weight changes, Hematologic/Lymphatic: Negative for swollen nodes, abnormal bleeding, and unusual bruising. 23:48 Psych: Positive for anxiety, insomnia, PHYSCOSIS. Exam: 23:48 Constitutional: This is a well developed, well nourished patient who is awake, alert, jaymie and in no acute distress. Head/Face: Normocephalic, atraumatic. Eyes: Pupils equal round and reactive to light, extra-ocular motions intact. Lids and lashes normal. Conjunctiva and sclera are non-icteric and not injected. Cornea within normal limits. Periorbital areas with no swelling, redness, or edema. ENT: Nares patent. No nasal discharge, no septal abnormalities noted. Tympanic membranes are normal and external auditory canals are clear. Oropharynx with no redness, swelling, or masses, exudates, or evidence of obstruction, uvula midline. Mucous membranes moist. Neck: Trachea midline, no thyromegaly or masses palpated, and no cervical lymphadenopathy. Supple, full range of motion without nuchal rigidity, or vertebral point tenderness. No Meningismus. Chest/axilla: Normal chest wall appearance and motion. Nontender with no deformity. No lesions are appreciated. Cardiovascular: Regular rate and rhythm with a normal S1 and S2. No gallops, murmurs, or rubs. Normal PMI, no JVD. No pulse deficits. Respiratory: Lungs have equal breath sounds bilaterally, clear to auscultation and percussion. No rales, rhonchi or wheezes noted. No increased work of breathing, no retractions or nasal flaring. Abdomen/GI: Soft, non-tender, with normal bowel sounds. No distension or tympany. No guarding or rebound. No evidence of tenderness throughout. Back: No spinal tenderness. No costovertebral tenderness. Full range of motion. Skin: Warm, dry with normal turgor. Normal color with no rashes, no lesions, and no evidence of cellulitis. MS/ Extremity: Pulses equal, no cyanosis. Neurovascular intact. Full, normal range of motion. Neuro: Awake and alert, GCS 15, oriented to person, place, time, and situation. Cranial nerves II-XII grossly intact. Motor strength 5/5 in all extremities. Sensory grossly intact. Cerebellar exam normal. Normal gait. 23:48 Psych: Affect is animated, Oriented to person, place, time, Patient has no thoughts/intents to harm self or others. Judgement / Insight is normal. 23:56 ECG was reviewed by the Attending Physician. [facility] Vital Signs: 18:34 BP 158 / 86; Pulse 98; Resp 18; Temp 98.3; Pulse Ox 100% ; Weight 81.65 kg; Height 5 ss7 ft. 2 in. (157.48 cm); 23:00 BP 155 / 60; Pulse 75; Resp 16; Pulse Ox 99% on R/A; st1 06/07 03:11 BP 140 / 70; Pulse 78; Resp 16; Pulse Ox 100% on R/A; st1 06/06 18:34 Body Mass Index 32.92 (81.65 kg, 157.48 cm) ss7 NIH Stroke Scale Scores: 06/06 23:48 NIHSS Score: 0 jaymie MDM: 20:49 Patient medically screened. [facility] 23:52 Differential diagnosis: drug withdrawal. acute psychotic break, psychosis secondary to jaymie non-compliance. Data reviewed: vital signs, nurses notes, lab test result(s), EKG. Data interpreted: rotational moulding operator: not applicable for this patient encounter. rate is 98 beats/min, rhythm is regular, Pulse oximetry: on room air is 100 %. Test interpretation: by ED physician or midlevel provider: ECG. Counseling: I had a detailed discussion with the patient and/or guardian regarding: the historical points, exam findings, and any diagnostic results supporting the discharge/admit diagnosis, lab results, the need to transfer to another facility, for higher level of care, [facility] does not immediately have the required specialist. 06/06 20:48 Order name: Acetaminophen [facility] 06/06 20:48 Order name: Basic Metabolic Panel [facility] 06/06 20:48 Order name: CBC with Diff [facility] 06/06 20:48 Order name: ETOH Level; Complete Time: 23:46 [facility] 06/06 20:48 Order name: Hepatic Function; Complete Time: 23:46 [facility] 06/06 20:48 Order name: PT-INR; Complete Time: 23:46 [facility] 06/06 20:48 Order name: Ptt, Activated; Complete Time: 23:46 [facility] 06/06 20:48 Order name: Salicylate; Complete Time: 23:46 [facility] 06/06 20:48 Order name: Urine Drug Screen; Complete Time: 23:46 [facility] 06/06 20:49 Order name: Acetaminophen Level; Complete Time: 23:46 [facility] 06/06 20:49 Order name: Basic Metabolic Panel; Complete Time: 23:46 [facility] 06/06 21:42 Order name: Urine Dipstick-Ancillary; Complete Time: 23:46 [facility] 06/06 21:56 Order name: Urine --Ancillary (enter results) 2 06/06 21:56 Order name: Urine --Ancillary; Complete Time: 23:46 [facility] 06/06 20:48 Order name: EKG; Complete Time: 20:49 [facility] 06/06 20:48 Order name: EKG - Nurse/Tech; Complete Time: 22:09 [facility] 06/06 20:48 Order name: IV Saline Lock; Complete Time: 21:15 [facility] 06/06 20:48 Order name: Labs collected and sent; Complete Time: 21:15 [facility] 06/06 20:48 Order name: Suicide Screening ([place]); Complete Time: 21:16 [facility] 06/06 20:48 Order name: Urine Dipstick-Ancillary (obtain specimen); Complete Time: 21:47 [facility] 06/06 20:48 Order name: Urine Test (obtain specimen); Complete Time: 21:47 [facility] 06/06 23:54 Order name: SARS-COV-2 RT PCR (Document "Date of Onset" if Symptomatic); Complete Time: [facility] 01:46 EC:56 Rate is 97 beats/min. Rhythm is regular. QRS [place] is Normal. [place] interval is normal. QRS jaymie interval is normal. QT interval is normal. No Q waves. T waves are Normal. No ST changes noted. Clinical impression: NSR w/ Non-specific ST/T Changes and No evidence of ischemia. Interpreted by me. Reviewed by me. Administered Medications: 21:35 Drug: NS 0.9% 1000 ml Route: IV; Rate: 1 bolus; Site: right antecubital; ss7 06/07 03:15 Follow up: IV Status: Completed infusion st1 Disposition Summary: 06/07/21 02:36 Discharge Ordered Location: Home jaymie Problem: new(06/07/21 02:36) jaymie Symptoms: have improved(06/07/21 02:36) jaymie Condition: Stable(06/07/21 02:36) jaymie Diagnosis - Paranoid schizophrenia(06/07/21 02:36) jaymie Followup: jaymie - With: Jalen Holland DO - When: 2 - 3 days - Reason: Recheck today's complaints, Continuance of care, Re-evaluation by your physician Followup: jaymie - With: Felix Valenzuela MD - When: 2 - 3 days - Reason: Recheck today's complaints, Continuance of care, Re-evaluation by your physician Discharge Instructions: - Discharge Summary Sheet jaymie - Schizophrenia jaymie - Psychosis jaymie - Supporting Someone With Schizophrenia jaymie - Managing Schizophrenia jaymie Forms: - Medication Reconciliation Form jaymie - Thank You Letter jaymie - Antibiotic Education jaymie - Prescription Opioid Use jaymie NIH Stroke Scale - NIH Stroke Score Date: 06/06/2021 Time: 23:48 Total Score = 0 1a. Level of Consciousness (LOC) - 0(Alert) 1b. Level of Consciousness (LOC) (Month \\T\\ Age) - 0(Both) 1c. LOC Commands (Open \\T\\ Closes Eyes/Dental Hygiene Administrative Assistant) - 0(Both) 2. Best Gaze (Lateral Gaze Paresis) - 0(Normal) 3. Visual Field Loss - 0(No visual loss) 4. Facial Palsy - 0(Normal) 5a. Left Arm: Motor (10-second hold) - 0(No drift) 5b. Right Arm: Motor (10-second hold) - 0(No drift) 6a. Left Leg: Motor (5-second hold - always test supine) - 0(No drift) 6b. Right Leg: Motor (5-second hold - always test supine) - 0(No drift) 7. Limb Ataxia (finger/nose \\T\\ heel/murillo - test with eyes open) - 0(Absent) 8. Sensory Loss (pinprick arms/legs/face) - 0(Normal) 9. Best Language: Aphasia (description/naming/reading) - 0(No aphasia) 10. Dysarthria (speech clarity - read or repeat words) - 0(Normal) 11. Extinction and Inattention (visual/tactile/auditory/spatial/personal) - 0(No abnormality) Initials: [facility] Signatures: Dispatcher [employer] EDAlexandre Whitman MD MD cha Smirch, Shelby, RN RN ss Miranda Cabrera RN RN st1 Dary House RN RN ss7 Corrections: (The following items were deleted from the chart) 06/06 23:53 23:46 TO PSYCH jaymie jaymie 06/07 02:35 06/06 23:46 Psych Facility jaymie jaymie 06/07 02:35 06/06 23:46 Higher level of care jaymie jaymie 06/07 02:35 06/06 23:46 Stable jaymie jaymie 06/07 02:35 06/06 23:46 new jaymie jaymie 06/07 02:35 06/06 23:46 have improved jaymie jaymie 06/07 02:35 06/06 23:46 Paranoid schizophrenia jaymie jaymie 06/07 02:35 06/06 23:53 TO PSYCH jaymie jaymie 06/07 02:35 06/06 23:53 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
[2021-06-07 04:37] VITALS: TEMP 98.3
[2021-06-07 04:57] VITALS: BP 140/70; O2SAT 100
--- NOTE | 2021-06-07 13:04 | EKG ---
Test Date: 2021-06-06 Test Time: 22:08:12 Filler Machine Operator: DIAMOND MEASUREMENT RESULTS: Intervals: Rate: 101 VA: 142 QRSD: 74 QT: 358 QTc: 464 [place]: P: 56 VA: 142 QRS: 20 T: 25 INTERPRETIVE STATEMENTS: Sinus tachycardia Otherwise normal ECG Compared to ECG 06/06/2021 20:52:22 Sinus rhythm no longer present T-wave abnormality no longer present Electronically Signed On 06-07-21 13:02:52 NUCLEAR FUELS RECLAMATION ENGINEER by Paul Duckworth
--- NOTE | 2021-06-07 13:05 | EKG ---
Test Date: 2021-06-06 Test Time: 20:52:22 Concrete Plant Laborer: CASE MEASUREMENT RESULTS: Intervals: Rate: 97 GA: 136 QRSD: 76 QT: 348 QTc: 441 [place]: P: 60 GA: 136 QRS: 52 T: 41 INTERPRETIVE STATEMENTS: Normal sinus rhythm Nonspecific T wave abnormality Abnormal ECG Compared to ECG 02/06/2003 10:42:00 T-wave abnormality now present Electronically Signed On 06-07-21 13:02:57 PARTS CASTING MACHINE OPERATOR by Paul Duckworth
== END 2021-06-07 03:17 | disposition home or self-care (01) ==
LOC: ER 17:46
DX: F20.0 Paranoid schizophrenia (principal); E03.9 Hypothyroidism, unspecified; Z88.1 Allergy status to other antibiotic agents; Z20.822 Contact with and (suspected) exposure to COVID-19
CPT/HCPCS: 36415; 80048; 80076; 80307; 80320; 80329; 81003; 81025; 85025; 85610; 85730; 93005; 96360; 96361; 99283; J7030; U0003

== ENCOUNTER 2023-02-09 09:51 | Emergency (ER) | payer OTHER, SELFPAY ==
--- OUTSIDE RECORDS SUMMARY | 2023-02-09 09:54 | XMS REPORT | Continuity of Care Document ---
:1980 Author Organization [facility] t Address [address] [place] [address] Care Team Providers Name Role Phone Jalen Holland Attending Clinician Unavailable Problems Condition Condition Condition Status Onset Resolution Last Treating Co mments Source Name Details Category Date Date Treatment Clinician Date Depression Depression Problem C [facility] Mixed Hyperlipid Problem Commo n hyperlipid emia, Spirit emia mixed [facility] Hypothyroi Hypothyroi Problem C [facility] dism dism [facility] [id number] Fatigue, Problem Commo n unspecifie Spirit d type [facility] [id number] Status Problem Common post Spirit hysterecto - [facility] my [facility] [id number] Pain, Problem Commo n [id number] joint, Spirit hand, - [facility] right [facility] Allergic Allergic Problem Commo n rhinitis rhinitis [facility] [id number] Paresthesi Problem C [facility] [id number] a of right Spiri t arm [facility] Hyperglyce Hyperglyce Problem C [facility] malathi malathi [facility] [id number] Nocturia Problem Comm on [facility] [id number] Vitamin D Problem Comm on deficiency [facility] [id number] Adult BMI Problem Com mon 33.0-33.9 Spirit kg/sq [facility] [id number] Carpal Problem Common tunnel Spirit syndrome - [facility] of right [facility] [id number] Other Problem Common obesity Spirit due to - [facility] excess [facility] Allergies, Adverse Reactions, Alerts Allergy Allergy Status Severity Reaction(s) Onset Inactive Treating Comm ents Source Name Type Date Date Clinician amoxicil amoxicil Active Unknown Commo kali horn [facility] Social History Social Habit Start Date Stop Date Quantity Comments Source History of Tobacco Use Co mmon [facility] Sex Assigned At Com mon [facility] Smoking Status Start Date Stop Date Source Never Smoker Common [facility] Medications Ordered Filled Start Stop Current Ordering Indication Dosage Frequency Signature Comments Components Source Medication Medication Date Date Medication? Clinician (SIG) Name Name Levothyroxi Levothyroxi Yes Jalen 1 tablet Common ne Sodium ne Sodium Holland on an Spi rit empty - [facility] stomach in [facility] Vitamin D3 Vitamin D3 Yes Jalen 1 tablet Common Holland [facility] Fluticasone Fluticasone Yes Jalen SPRAY TWO Common Propionate Propionate Holland SPRAYS IN [facility] EACH - [facility] NOSTRIL ONCE DAILY [facility] Flonase Flonase Yes Jalen 1 spray in C ommon Allergy Allergy Holland each Spirit Relief Relief nostril [facility] Levothyroxi Levothyroxi No QD Levothyrox ne Sodium ne Sodium ine Sodium 50 MCG 50 MCG 50 MCG Vitamin D3 Vitamin D3 No 1{table QD Vitamin D3 5000 UNIT 5000 UNIT t} 5000 UNIT Levothyroxi Levothyroxi No QD Levothyrox ne Sodium ne Sodium ine Sodium 50 MCG 50 MCG 50 MCG Fluticasone Fluticasone No Fluticason Propionate Propionate e 50 MCG/ACT 50 MCG/ACT Propionate 50 MCG/ACT Flonase Flonase No 1{spray QD Flonase Allergy Allergy _in_eac Allergy Relief 50 Relief 50 h_nostr Relief 50 MCG/ACT MCG/ACT il} MCG/ACT Flonase Flonase No 1{spray QD Flonase Allergy Allergy _in_eac Allergy Relief 50 Relief 50 h_nostr Relief 50 MCG/ACT MCG/ACT il} MCG/ACT Fluticasone Fluticasone No Fluticason Propionate Propionate e 50 MCG/ACT 50 MCG/ACT Propionate 50 MCG/ACT Flonase Flonase No 1{spray QD Flonase Allergy Allergy _in_eac Allergy Relief 50 Relief 50 h_nostr Relief 50 MCG/ACT MCG/ACT il} MCG/ACT Vitamin D3 Vitamin D3 No 1{table QD Vitamin D3 5000 UNIT 5000 UNIT t} 5000 UNIT Flonase Flonase No 1{spray QD Flonase Allergy Allergy _in_eac Allergy Relief 50 Relief 50 h_nostr Relief 50 MCG/ACT MCG/ACT il} MCG/ACT Levothyroxi Levothyroxi No QD Levothyrox ne Sodium ne Sodium ine Sodium 50 MCG 50 MCG 50 MCG Fluticasone Fluticasone No Fluticason Propionate Propionate e 50 MCG/ACT 50 MCG/ACT Propionate 50 MCG/ACT Flonase Flonase No 1{spray QD Flonase Allergy Allergy _in_eac Allergy Relief 50 Relief 50 h_nostr Relief 50 MCG/ACT MCG/ACT il} MCG/ACT Vitamin D3 Vitamin D3 No 1{table QD Vitamin D3 5000 UNIT 5000 UNIT t} 5000 UNIT Flonase Flonase No 1{spray QD Flonase Allergy Allergy _in_eac Allergy Relief 50 Relief 50 h_nostr Relief 50 MCG/ACT MCG/ACT il} MCG/ACT Levothyroxi Levothyroxi No QD Levothyrox ne Sodium ne Sodium ine Sodium 50 MCG 50 MCG 50 MCG Flonase Flonase No 1{spray QD Flonase Allergy Allergy _in_eac Allergy Relief 50 Relief 50 h_nostr Relief 50 MCG/ACT MCG/ACT il} MCG/ACT Flonase Flonase No 1{spray QD Flonase Allergy Allergy _in_eac Allergy Relief 50 Relief 50 h_nostr Relief 50 MCG/ACT MCG/ACT il} MCG/ACT Fluticasone Fluticasone No Fluticason Propionate Propionate e 50 MCG/ACT 50 MCG/ACT Propionate 50 MCG/ACT Levothyroxi Levothyroxi No QD Levothyrox ne Sodium ne Sodium ine Sodium 50 MCG 50 MCG 50 MCG Vitamin D3 Vitamin D3 No 1{table QD Vitamin D3 5000 UNIT 5000 UNIT t} 5000 UNIT Vitamin D3 Vitamin D3 No 1{table QD Vitamin D3 5000 UNIT 5000 UNIT t} 5000 UNIT Fluticasone Fluticasone No Fluticason Propionate Propionate e 50 MCG/ACT 50 MCG/ACT Propionate 50 MCG/ACT Flonase Flonase No 1{spray QD Flonase Allergy Allergy _in_eac Allergy Relief 50 Relief 50 h_nostr Relief 50 MCG/ACT MCG/ACT il} MCG/ACT Flonase Flonase No 1{spray QD Flonase Allergy Allergy _in_eac Allergy Relief 50 Relief 50 h_nostr Relief 50 MCG/ACT MCG/ACT il} MCG/ACT Levothyroxi Levothyroxi No QD Levothyrox ne Sodium ne Sodium ine Sodium 50 MCG 50 MCG 50 MCG Levothyroxi Levothyroxi No QD Levothyrox ne Sodium ne Sodium ine Sodium 50 MCG 50 MCG 50 MCG Levothyroxi Levothyroxi No QD Levothyrox ne Sodium ne Sodium ine Sodium 50 MCG 50 MCG 50 MCG Fluticasone Fluticasone No Fluticason Propionate Propionate e 50 MCG/ACT 50 MCG/ACT Propionate 50 MCG/ACT Flonase Flonase No 1{spray QD Flonase Allergy Allergy _in_eac Allergy Relief 50 Relief 50 h_nostr Relief 50 MCG/ACT MCG/ACT il} MCG/ACT Vitamin D3 Vitamin D3 No 1{table QD Vitamin D3 5000 UNIT 5000 UNIT t} 5000 UNIT Flonase Flonase No 1{spray QD Flonase Allergy Allergy _in_eac Allergy Relief 50 Relief 50 h_nostr Relief 50 MCG/ACT MCG/ACT il} MCG/ACT Vital Signs Vital Name Observation Time Observation Value Comments Source height 2022-05-20 13:00:00 62 [in_i] [facility] weight 2022-05-20 13:00:00 183 [lb_av] [facility] temperature 2022-05-20 13:00:00 98 [degF] Common S pirit [facility] bmi 2022-05-20 13:00:00 33.47 kg/m2 Common S pirit [facility] blood pressure 2022-05-20 13:00:00 132 mm[Hg] Common Spirit - systolic [facility] blood pressure 2022-05-20 13:00:00 72 mm[Hg] Common Spirit - diastolic [facility] height 2022-01-29 15:10:00 62 [in_i] Common S pirit [facility] weight 2022-01-29 15:10:00 180.0 [lb_av] Common Spirit - [facility] temperature 2022-01-29 15:10:00 97.6 [degF] Common [facility] bmi 2022-01-29 15:10:00 32.92 kg/m2 [facility] oximetry 2022-01-29 15:10:00 99 % [facility] respiratory rate 2022-01-29 15:10:00 18 /min Comm on [facility] blood pressure 2022-01-29 15:10:00 131 mm[Hg] Common [facility] - systolic [facility] blood pressure 2022-01-29 15:10:00 74 mm[Hg] Common [facility] diastolic [facility] height 2021-02-12 16:20:00 62 [in_i] [facility] weight 2021-02-12 16:20:00 184 [lb_av] [facility] temperature 2021-02-12 16:20:00 97.5 [degF] [facility] bmi 2021-02-12 16:20:00 33.65 kg/m2 [facility] Procedures This patient has no known procedures. Encounters Start End Encounter Admission Attending Care Care Encounter Source Date/Time Date/Time Type Type Clinicians Facility Department ID 2022-05-16 Outpatient Holland, STLMLC [facility] [id number] Common 10:43:00 Jalen [id number] [facility] 2022-01-27 Outpatient Holland, STLMLC [facility] [id number] Common 08:28:00 Jalen [id number] [facility] 2021-05-15 Outpatient Holland, STLMLC [facility] [id number] Common 12:06:37 Jalen [id number] [facility] 2021-05-15 Outpatient Holland, STLMLC [facility] [id number] Common 12:06:03 Jalen [id number] [facility] 2021-05-15 Outpatient Holland, STLMLC [facility] [id number] Common 11:21:23 Jalen [id number] [facility] 2021-05-15 Outpatient Holland, STLMLC STLMLC [id number] Common 11:06:51 Jalen [id number] [facility] 2021-05-15 Outpatient Holland, STLMLC ST[facility] [id number] Common 11:06:24 Jalen [id number] [facility] 2021-05-15 Outpatient Holland, STLMLC STLMLC [id number] Common 11:06:12 Jalen [id number] [facility] 2021-05-15 Outpatient Holland, STLMLC STLMLC [id number] Common 11:04:19 Jalen [id number] [facility] 2022-05-20 2022-05-20 OFFICE STLMLC STLMLC [id number] Co mmon 00:00:00 00:00:00 VISIT EST Spir it PT LEVEL 3 [facility] 2022-05-02 2022-05-02 (TEL) STLMLC STLMLC [id number] Co mmon 00:00:00 00:00:00 [facility] 2022-01-29 2022-01-29 OFFICE STLMLC STLMLC [id number] Co mmon 00:00:00 00:00:00 VISIT EST Spir it PT LEVEL 3 [facility] 2021-12-31 2021-12-31 (TEL) STLMLC STLMLC [id number] Co mmon 00:00:00 00:00:00 [facility] 2021-06-10 2021-06-10 (TEL) STLMLC STLMLC [id number] Co mmon 00:00:00 00:00:00 [facility] 2021-02-12 2021-02-12 OFFICE STLMLC STLMLC [id number] Co mmon 00:00:00 00:00:00 VISIT EST Spir it PT LEVEL 3 [facility] 2020-11-06 2020-11-06 Outpatient STLMLC STLMLC [id number] Common 00:00:00 00:00:00 [facility] 2020-10-03 2020-10-03 Outpatient STLMLC STLMLC [id number] Common 00:00:00 00:00:00 [facility] 2020-06-07 2020-06-07 Outpatient STLMLC STLMLC [id number] Common 00:00:00 00:00:00 [facility] 2020-03-07 2020-03-07 Outpatient STLMLC STLMLC [id number] Common 00:00:00 00:00:00 [facility] 2020-03-06 2020-03-06 Outpatient STLMLC STLMLC [id number] Common 00:00:00 00:00:00 [facility] 2019-12-05 2019-12-05 [facility] [id number] Common 14:53:00 14:53:[address] [facility] 2019-12-02 2019-12-02 [facility] [id number] Common 10:45:00 10:45:[address] [facility] 2019-09-05 2019-09-05 [facility] [id number] Common 16:45:00 16:45:[address] [facility] 2019-09-02 2019-09-02 [facility] [id number] Common 10:21:00 10:21:[address] [facility] 2019-07-06 2019-07-06 [facility] [id number] Common 16:56:00 16:56:[address] [facility] 2019-07-04 2019-07-04 [facility] [id number] Common 13:45:00 13:45:[address] [facility] 2019-07-04 2019-07-04 [facility] [id number] Common 10:39:00 10:39:[address] [facility] 2019-05-31 2019-05-31 [facility] [id number] Common 16:28:00 16:28:[address] [facility] 2019-05-05 2019-05-05 [facility] [id number] Common 10:14:00 10:14:[address] [facility] 2019-03-31 2019-03-31 [facility] [id number] Common 10:54:00 10:54:[address] [facility] 2018-12-06 2018-12-06 [facility] [id number] Common 09:45:00 09:45:[address] [facility] 2018-12-03 2018-12-03 [facility] [id number] Common 16:33:00 16:33:[address] [facility] 2018-11-03 2018-11-03 [facility] [id number] Common 08:36:00 08:36:[address] [facility] 2018-08-16 2018-08-16 [facility] [id number] Common 15:30:00 15:30:00 [facility] 2018-05-26 2018-05-26 [facility] [id number] Common 13:00:00 13:00:[address] [facility] 2018-01-26 2018-01-26 [facility] [id number] Common 13:15:00 13:15:[address] [facility] 2018-01-13 2018-01-13 [facility] [id number] Common 13:15:00 13:15:00 [facility] 2017-12-15 2017-12-15 [facility] [id number] Common 09:34:00 09:34:[address] [facility] 2017-11-23 2017-11-23 [facility] [id number] Common 13:30:00 13:30:[address] [facility] 2017-10-29 2017-10-29 [facility] [id number] Common 13:45:00 13:45:[address] [facility] 2017-09-29 2017-09-29 [facility] [id number] Common 11:15:00 11:15:[address] [facility] 2017-09-22 2017-09-22 [facility] [id number] Common 11:11:00 11:11:[address] [facility] 2017-09-17 2017-09-17 [facility] [id number] Common 13:00:00 13:00:[address] [facility] Results This patient has no known results.
--- NOTE | 2023-02-09 10:29 | EDPHYS ---
Physician Documentation [facility] Name: Natacha Levine Age: 42 yrs Sex: Female : 1980 Arrival Date: 02/09/2023 Time: 09:51 Bed 13 Private MD: ED Physician Murtaza Adkins HPI: 02/09 10:18 This 42 yrs old Female presents to ER via Ambulatory with complaints of Facial jh7 Swelling. 10:18 Onset: The symptoms/episode began/occurred 4 day(s) ago. Patient reports that she was jh7 pulling a poison angelique vine from its root and that it hit her in the face. Complains of rash, itching, and swelling around the eye. Denies any shortness of breath.. SVP: 10:25 LMP N/A - , Not mb9 Historical: - Allergies: 10:18 Amoxicillin; iw - Home Meds: 10:18 levothyroxine 50 mcg tab 1 tab once daily [Active]; iw - PMHx: 10:18 Hyperlipidemia; Hypothyroidism; Hypothyroidism; Schizophrenia; iw - Immunization history:: Adult Immunizations up to date. - Social history:: Smoking status: Patient denies any tobacco usage or history of. ROS: 10:18 Constitutional: Negative for fever, chills, and weight loss, ENT: Negative for injury, jh7 pain, and discharge, Neck: Negative for injury, pain, and swelling, Cardiovascular: Negative for chest pain, palpitations, and edema, Respiratory: Negative for shortness of breath, cough, wheezing, and pleuritic chest pain, Abdomen/GI: Negative for abdominal pain, nausea, vomiting, diarrhea, and constipation, Back: Negative for injury and pain, MS/Extremity: Negative for injury and deformity, Neuro: Negative for headache, weakness, numbness, tingling, and seizure, 10:18 Eyes: Positive for itching, swelling, of the left eye, 10:18 Skin: Positive for rash, of the face, 10:18 All other systems are negative, Exam: 10:18 Constitutional: This is a well developed, well nourished patient who is awake, alert, jh7 and in no acute distress. ENT: Nares patent. No nasal discharge, no septal abnormalities noted. Tympanic membranes are normal and external auditory canals are clear. Oropharynx with no redness, swelling, or masses, exudates, or evidence of obstruction, uvula midline. Mucous membranes moist. Neck: Trachea midline, no thyromegaly or masses palpated, and no cervical lymphadenopathy. Supple, full range of motion without nuchal rigidity, or vertebral point tenderness. No Meningismus. Cardiovascular: Regular rate and rhythm with a normal S1 and S2. No gallops, murmurs, or rubs. Normal PMI, no JVD. No pulse deficits. Respiratory: Lungs have equal breath sounds bilaterally, clear to auscultation and percussion. No rales, rhonchi or wheezes noted. No increased work of breathing, no retractions or nasal flaring. Abdomen/GI: Soft, non-tender, with normal bowel sounds. No distension or tympany. No guarding or rebound. No evidence of tenderness throughout. Back: No spinal tenderness. No costovertebral tenderness. Full range of motion. MS/ Extremity: Pulses equal, no cyanosis. Neurovascular intact. Full, normal range of motion. Neuro: Awake and alert, GCS 15, oriented to person, place, time, and situation. Motor strength 5/5 in all extremities. Sensory grossly intact. Normal gait. 10:18 Eyes: Periorbital structures: swelling, that is mild, on the left supraorbital ridge, left upper eyelid and left lower eyelid, 10:18 Skin: contact dermatitis, on the left side of face, Vital Signs: 10:24 BP 132 / 68; Pulse 84; Resp 18; Temp 97.5; Pulse Ox 100% on R/A; Weight 83.91 kg; 9 Height 5 ft. 4 in. ; 10:24 Body Mass Index 31.75 (83.91 kg, 162.56 cm) [facility] MDM: 09:55 Patient medically screened. [facility] 10:40 Differential diagnosis: Contact dermatitis, allergic reaction, poison angelique dermatitis. [facility] Data reviewed: vital signs, nurses notes. I considered the following discharge prescriptions or medication management in the emergency department Medications were administered in the Emergency Department. See MAR. Counseling: I had a detailed discussion with the patient and/or guardian regarding the historical points, exam findings, and any diagnostic results supporting the discharge/admit diagnosis, to return to the emergency department if symptoms worsen or persist or if there are any questions or concerns that arise at home. Response to treatment: the patient's symptoms have mildly improved after treatment. Administered Medications: 10:23 Drug: Dexamethasone IM 10 mg IM once Route: IM; Site: right gluteus; mb9 10:23 Drug: diphenhydrAMINE IM 25 mg IM once Route: IM; Site: right deltoid; mb9 Disposition Summary: 02/09/23 10:28 Discharge Ordered Notes: Location: Home [facility] Problem: new [facility] Symptoms: have improved [facility] Condition: Stable [facility] Diagnosis - Allergic contact dermatitis due to plants, except food [facility] Followup: [facility] - With: Private Physician - When: 2 - 3 days - Reason: Recheck today's complaints Discharge Instructions: - Discharge Summary Sheet [facility] - Contact Dermatitis [facility] - Poison Angelique Dermatitis [facility] Forms: - Medication Reconciliation Form [facility] - Thank You Letter [facility] - Patient Portal Instructions [facility] - Leadership Thank You Letter [facility] Prescriptions: - Hydroxyzine HCl 25 mg Oral Tablet - take 1 tablet ORAL route every 6 hours As needed; 30 tablet; Refills: 0, [facility] Product Selection Permitted - Prednisone 20 mg Oral Tablet - take 2 tablets ORAL route once daily for 5 days; 10 tablet; Refills: 0, Product [facility] Selection Permitted Addendum: 02/10/2023 20:17 Co-signature as Attending Physician, Murtaza Adkins MD. e c2 Signatures: Di Dhillon RN RN Jenni Echols FNP [employer] 7 Mary Ortiz RN RN mb9 Murtaza Adkins MD MD ec2
--- NOTE | 2023-02-09 10:29 | ER ---
Nurse's Notes [facility] Name: Natacha Levine Age: 42 yrs Sex: Female : 1980 Arrival Date: 02/09/2023 Time: 09:51 Bed 13 Private MD: Diagnosis: Allergic contact dermatitis due to plants, except food Presentation: 02/09 10:17 Chief complaint: Patient states: got into some poison joe on , worsening iw facial swelling , rash. Coronavirus screen: At this time, the client does not indicate any symptoms associated with coronavirus-19. Ebola Screen: Patient negative for fever greater than or equal to 101.5 degrees Fahrenheit, and additional compatible Ebola Virus Disease symptoms Patient denies exposure to infectious person. No symptoms or risks identified at this time. Initial Sepsis Screen: Does the patient meet any 2 criteria? No. Patient's initial sepsis screen is negative. Does the patient have a suspected source of infection? No. Patient's initial sepsis screen is negative. Risk Assessment: Do you want to hurt yourself or someone else? Patient reports no desire to harm self or others. Onset of symptoms was February 05, 2023. 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 - Social history:: Smoking status: Patient denies any tobacco usage or history of. Screenin:24 [facility] ED Fall Risk Assessment (Adult) History of falling in the last 3 months, mb9 including since admission No falls in past 3 months (0 pts) Confusion or Disorientation No (0 pts) Intoxicated or Sedated No (0 pts) Impaired Gait No (0 pts) Mobility Assist Device Used No (0 pt) Altered Elimination No (0 pt) Score/Fall Risk Level 0 - 2 = Low Risk Oriented to surroundings, Maintained a safe environment, Educated pt \T\ family on fall prevention, incl call for assistance when getting out of bed. Abuse screen: Denies threats or abuse. Nutritional screening: No deficits noted. Tuberculosis screening: No symptoms or risk factors identified. Assessment: 10:23 General: Appears in no apparent distress. Behavior is calm, cooperative. Pain: Denies mb9 pain. Neuro: Mckeon Agitation-Sedation Scale (RASS): 0 - Alert and Calm Level of Consciousness is awake, alert, obeys commands, Oriented to person, place, time, situation, Appropriate for age. Cardiovascular: Patient's skin is warm and dry. Respiratory: Airway is patent Respiratory effort is even, unlabored, Respiratory pattern is regular, symmetrical, Breath sounds are clear bilaterally. GI: No signs and/or symptoms were reported involving the gastrointestinal system. : No signs and/or symptoms were reported regarding the genitourinary system. EENT: Oral mucosa is moist. Throat is clear. Derm: Skin is pink, warm \T\ dry. Musculoskeletal: Range of motion: intact in all extremities. Musculoskeletal: Swelling present in face. 10:38 Reassessment: Patient and/or family updated on plan of care and expected duration. Pain mb9 level reassessed. Patient is alert, oriented x 3, equal unlabored respirations, skin warm/dry/pink. Patient states feeling better. Patient states symptoms have improved. Vital Signs: 10:24 BP 132 / 68; Pulse 84; Resp 18; Temp 97.5; Pulse Ox 100% on R/A; Weight 83.91 kg; mb9 Height 5 ft. 4 in. ; 10:24 Body Mass Index 31.75 (83.91 kg, 162.56 cm) mb9 ED Course: 09:54 Patient arrived in ED. im 09:55 Jenni Echols FNP is [facility]. jh7 09:55 Murtaza Adkins MD is Attending Physician. jh7 10:08 Mary Ortiz, TJ is Primary Nurse. mb9 10:18 Triage completed. iw 10:24 Bed in low position. Call light in reach. Side rails up X 1. Client placed on mb9 continuous cardiac and pulse oximetry monitoring. NIBP monitoring applied. 10:25 Arm band placed on. mb9 10:25 No provider procedures requiring assistance completed. Patient did not have IV access mb9 during this emergency room visit. Administered Medications: 10:23 Drug: Dexamethasone IM 10 mg IM once Route: IM; Site: right gluteus; mb9 10:23 Drug: diphenhydrAMINE IM 25 mg IM once Route: IM; Site: right deltoid; mb9 Medication: 10:24 VIS not applicable for this client. mb9 Outcome: 10:28 Discharge ordered by . [email or web address] 10:38 Discharged to home ambulatory, mb9 10:38 Condition: stable 10:38 Discharge instructions given to patient, Instructed on discharge instructions, follow up and referral plans. Demonstrated understanding of instructions, follow-up care, medications, Prescriptions given X 2, 10:38 Patient left the ED. mb9 Signatures: Di Dhillon, RN RN iw Jenni Echols, PROFILER OPERATOR PROFILER OPERATOR [email or web address] Mary Ortiz RN RN mb9 Rosi Barrera im
[2023-02-09] MEDS ORDERED: DIPHENHYDRAMINE 50 MG/ML VIAL ONE (10:31)
[2023-02-09] MEDS ORDERED: dexAMETHasone 10 MG/ML VIAL ONE (10:31)
== END 2023-02-09 10:38 | disposition home or self-care (01) ==
LOC: ER 09:51
DX: L23.7 Allergic contact dermatitis due to plants, except food (principal); Z88.1 Allergy status to other antibiotic agents
CPT/HCPCS: 96372; 99284; J1100; J1200